=== PATIENT | male | born 1980 | race Caucasian/White ===

== ENCOUNTER 2017-07-16 16:01 | Emergency (ER) | payer SELFPAY ==
[~2017-07-16] VITALS: Ht 170.2 cm; Wt 181.4 kg
[~2017-07-16 16:01] MED LIST: DARVOCET-N 1001 EACH PO; KEFLEX 500MG.500 MG PO; NOMEDS XX
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
--- OUTSIDE RECORDS SUMMARY | 2017-07-16 16:09 | External Medical Summary Rpt | CCD ---
Author Author PATRICIA Address Unknown Phone [email or web address] Purpose Continuity of Care Document - through 2016
--- OUTSIDE RECORDS SUMMARY | 2017-07-16 16:09 | External Medical Summary Rpt | CCD ---
Demographics Preferred Language Zambian Marital Status Unknown Mormonism Affiliation Unknown Race Unknown Ethnic Group Unknown Author Author , PATRICIA GOMEZ Address Unknown Phone Immunization Unable to retrieve immunization data due to connection failure with Immunization Registry. Please try again later.
--- OUTSIDE RECORDS SUMMARY | 2017-07-16 16:09 | External Medical Summary Rpt | CCD ---
Demographics Preferred Language Estonian Marital Status Unknown Mosque Affiliation Unknown Race Unknown Ethnic Group Unknown Author Author , PATRICIA GOMEZ Address Unknown Phone Immunization Unable to retrieve immunization data due to connection failure with Immunization Registry. Please try again later.
--- OUTSIDE RECORDS SUMMARY | 2017-07-16 16:09 | External Medical Summary Rpt ---
Author Author PATRICIA Glover, [employer] Address Unknown Phone Unavailable
--- OUTSIDE RECORDS SUMMARY | 2017-07-16 16:09 | External Medical Summary Rpt | CCD ---
Author Author PATRICIA Address Unknown Phone [email or web address] Purpose Continuity of Care Document - through 2016
[2017-07-16] MEDS ORDERED: IBUPROFEN800 MG PO (16:55)
[2017-07-16] MEDS ORDERED: FLEXERIL10 MG PO (16:55)
--- NOTE | 2017-07-16 16:55 | Urgent Treatment Center Report ---
History of Present Issue Date/Time Seen by Provider 07/16/17 1640 Visit Reason Pt arrived:Walked Presenting Problem:PT STATES HE BENT OVER TO PICK SOMETHING UP OFF THE FLOOR AND FELT A POP IN HIS RIBS. THIS WAS 4 DAYS AGO. Location if Accident: Onset of symptoms date/time:/ or onset unknown for:MEDICAL HX UNKNOWN Have you (or family members/close friends) recently traveled outside the [place]? N If Yes, where/when: Have you had exposure to infectious disease within the past month? TB? Other? Specify: Patient state that he was bending over to picket [employer] an object when he felt something in his left rib area pop State that this happened about 4 days ago and he is still having pain and discomfort when he moves quickley or tries to get up from a sitting postition States that he is unsure if he may have broken a rib or just pulled something. States that he has not been having any trouble breathing just pain with movenment ALLERGIES Coded Allergies: No Known Allergies (07/16/17) Home Medications Reported Medications No Home Medications (NO HOME MEDICATIONS) 1 EACH XX ONCE History Medical History General Angina: No FL: No Hypertension? No Hyperlipidemia? No CHF? No COPD? No Asthma? No CVA? No Seizures? No Diabetes? No GB Disease: No MRSA? No TB? No Cancer? No Immunization HX DT/Tetanus 01/21/2013 Surgical Hx Previous Surgery?N Social History Smoking Hx Smoker: Current Every Day Smoker Tobacco: Yes Type Cigarettes Packs/day < 1 Pack Alcohol Alcohol: No Review of Systems All Other Systems Reviewed and Negative Musculoskeletal other (rib pain) Physical Exam Vital Signs Vital Signs Date Time Temp Pulse Resp B/P Pulse O2 O2 Flow FiO2 Ox Delivery Rate 07/16 1618 98.9 98 20 150/96 97 General Appearance normal appearance, WD/WN, no apparent distress Respiratory Status Yes: trachea midline, chest symmetrical, non tender chest. No: respiratory distress. Lung Sounds bilateral: normal breath sounds, lungs clear. Cardiovascular normal exam, regular rate/rhythm, no peripheral edema Back normal inspection, no CVA tenderness, gait normal Neurologic alert, normal exam, oriented x 3 Comments Pain in left rib area after feeling a pop when he bent over to pick something up off the floor now having pain in left ribs when he moves quickly or tries to get up quickly no bruising noted, no swelling no complaints of respiratory distress Medical Decision Making LABS/Meds/Orders Pt receiving controlled substance in ED? No Results/Orders Orders Procedure Date/time Status [id number] VIEWS 07/16 1617 Active XRAY/CT/US XRAY/CT/US XRAY rib XR interpretation by reviewed by me Xray Results no fracture seen Comment Will have Radiologist do official read and if any different findings will call patient Departure Departure Time of Disposition 1651 Disposition DC Home or Self Care(routine) Clinical Impression Primary Impression: Rib pain on left side Condition STABLE Referrals Volodymyr TAVERA,Marco Antonio (Family): 2 Days-Call Office Patient Instructions DI for Rib Contusion Additional Instructions Take medication as prescribed Follow up with family doctor in 2-3 days or sooner if worsening of symptoms or difficulty breathing Return if needed Go straight to ER if you began to have any difficulty breathing or worsening of symtpoms Discharge Counseling Counseled pt/family regarding diagnosis, medications/RX, home care, follow up needs Prescriptions Current Visit Scripts Cyclobenzaprine Hcl (Flexeril) 10 MG PO TID #15 TAB Ibuprofen (Ibuprofen 800MG) 800 MG PO QIDP PRN pain #30 TAB at 1657
[2017-07-16 16:56] VITALS: BP 150/96
--- NOTE | 2017-07-16 18:39 | RADIOLOGY REPORT PS360 ---
[id number] VIEWS HISTORY: FELT A POP IN HIS SIDE WHEN HE BENT OVER 4 DAYS AGO chest pain left Patient Age: 37 years: Male Ordering Physician: SOLE NEWELL APRN TECHNIQUE: Oblique view left ribs along with AP chest above and below diaphragm COMPARISON :Previous chest film October 06, 2013 FINDINGS Left ribs appear intact with No evidence of fracture. No lesion. The lungs are clear with no active disease. Heart fletcher and mediastinal structures unremarkable. No pneumothorax. No pleural effusion no chest wall findings otherwise overlying artifact related to clothing The chest appears unchanged since September 2013 CXR. IMPRESSION: Negative left ribs. Negative stable chest. No active disease
== END 2017-07-16 16:56 | disposition home or self-care (01) ==
LOC: UTC 16:01
DX: R07.81 Pleurodynia (principal); F17.210 Nicotine dependence, cigarettes, uncomplicated